=== PATIENT | male | born 1960 | race Caucasian/White ===

== ENCOUNTER 2020-07-21 11:13 | Inpatient (IN) ==
[2020-07-21 12:08] LABS: VBG HCO3 18 mEq/L (21-27); VBG PCO2 27 mmHg (41-51); VBG PH 7.43 pH Units (7.32-7.42); VBG PO2 66 mmHg (25-50)
[2020-07-21 12:08] LABS: Basophils # 0.1 K/mcL (0.0-0.2); Basophils % 1.1 %; Eosinophils # 0.3 K/mcL (0.0-0.6); Eosinophils % 6.1 %; Hematocrit 26.9 % (37.5-50.1); Hemoglobin 8.8 g/dL (12.9-16.9); Immature Granulocytes % 0.2 % (0-4); Lymphocytes # 0.9 K/mcL (0.6-4.6); Lymphocytes % 18.9 %; Mean Corpuscular HGB Conc 32.7 g/dL (31.6-35.5); Mean Corpuscular Hemoglobin 29.2 pg (28.0-33.3); Mean Corpuscular Volume 89.4 fL (83.0-100.0); Mean Platelet Volume 10.2 fL (9.4-12.4); Monocytes # 0.3 K/mcL (0.0-1.3); Monocytes % 7.2 %; Neutrophils # 3.2 K/mcL (1.6-8.9); Platelet Count 103 K/mcL (140-400); Red Blood Count 3.01 M/mcL (4.19-5.50); Red Cell Distribution Width 15.7 % (11.5-14.5); Segmented Neutrophils % 66.5 %; White Blood Count 4.8 K/mcL (4.3-11.1)
[2020-07-21 12:10] LABS: INR 1.5; Prothrombin Time 16.3 Seconds (9.4-12.1)
[2020-07-21 12:21] LABS: Alanine Aminotransferase 22 Units/L (7-52); Albumin 3.3 g/dL (3.5-5.7); Albumin/Globulin Ratio 0.6 (1.1-2.2); Alkaline Phosphatase 100 Units/L (34-104); Aspartate Amino Transferase 34 Units/L (13-39); BUN/Creatinine Ratio 22 (6-26); Bilirubin,Total 0.7 mg/dL (0.3-1.0); Blood Urea Nitrogen 29 mg/dL (8-23); Calcium 9.2 mg/dL (8.6-10.3); Carbon Dioxide 21 mEq/L (23-29); Chloride 103 mEq/L (98-107); Globulin 5.4 g/dL (2.4-3.5); Glucose 258 mg/dL (70-105); Osmolality,Calculated 293 (280-300); Sodium 134 mEq/L (136-145); Total Protein 8.7 g/dL (6.4-8.9); eGFR For African Americans > 60 (> 60); eGFR For Non-African Americans 55 (> 60)
[2020-07-21 12:45] LABS: Bilirubin,Urine Negative (Negative); Blood,Urine Negative (Negative); Clarity,Urine Clear (Clear); Color,Urine Yellow (Yellow); Glucose,Urine (UA) Normal (Normal); Ketones,Urine Negative (Negative); Leukocyte Esterase,Urine Negative (Negative); Nitrite,Urine Negative (Negative); Protein,Urine Negative (Neg-Trace); Urobilinogen,Urine Normal (Normal)
[2020-07-21] MEDS ORDERED: Lactulose Oral Soln 20 GM/30 ML UDC PO ONE (13:02)
[2020-07-21] MEDS ORDERED: Ondansetron 4 MG/2 ML VIAL IVP PRN (14:04)
[2020-07-21] MEDS ORDERED: Naloxone 0.4 MG/ML INJ IVP PRN (14:04)
[2020-07-21] MEDS ORDERED: Pregabalin 75 MG CAPSULE PO ONE (14:05)
[2020-07-21] MEDS ORDERED: *HR* OxyCODONE Immed Rel 5 MG TABLET PO STA (14:05)
[2020-07-21] MEDS: Lactulose Oral Soln 20 GM/30 ML UDC PO SCH ×2 (16:54→22:30)
[2020-07-21] MEDS: Furosemide 20 MG TABLET PO SCH (16:56)
[2020-07-21] MEDS ORDERED: D5% in Water 1,000 ML IVC PRN ×2 (17:29→23:32)
[2020-07-21] MEDS ORDERED: Dextrose Gel 15 GM/37.5 ML TUBE PO PRN ×4 (17:29→23:32)
[2020-07-21] MEDS ORDERED: *HR* Dextrose 50 % in Water (Vial) 50 ML VIAL IVP PRN ×2 (17:29→23:32)
[2020-07-21] MEDS: Pregabalin 75 MG CAPSULE PO SCH (22:25)
[2020-07-21] MEDS: Morphine Sulfate ER (12 HR) 30 MG TABLET.ER PO SCH (22:27)
[2020-07-21] MEDS: *HR* OxyCODONE Immed Rel 5 MG TABLET PO PRN (23:08)
[2020-07-22 05:25] LABS: Basophils # 0.1 K/mcL (0.0-0.2); Eosinophils # 0.3 K/mcL (0.0-0.6); Eosinophils % 4.9 %; Hematocrit 27.7 % (37.5-50.1); Hemoglobin 9.1 g/dL (12.9-16.9); Immature Granulocytes % 0.2 % (0-4); Lymphocytes # 0.7 K/mcL (0.6-4.6); Mean Corpuscular HGB Conc 32.9 g/dL (31.6-35.5); Mean Corpuscular Hemoglobin 29.5 pg (28.0-33.3); Mean Corpuscular Volume 89.9 fL (83.0-100.0); Mean Platelet Volume 9.4 fL (9.4-12.4); Monocytes # 0.4 K/mcL (0.0-1.3); Monocytes % 7.9 %; Neutrophils # 3.6 K/mcL (1.6-8.9); Platelet Count 105 K/mcL (140-400); Red Blood Count 3.08 M/mcL (4.19-5.50); Red Cell Distribution Width 15.4 % (11.5-14.5); White Blood Count 5.1 K/mcL (4.3-11.1)
[2020-07-22 05:39] LABS: BUN/Creatinine Ratio 20 (6-26); Blood Urea Nitrogen 25 mg/dL (8-23); Calcium 9.3 mg/dL (8.6-10.3); Carbon Dioxide 22 mEq/L (23-29); Chloride 101 mEq/L (98-107); Glucose 201 mg/dL (70-105); Osmolality,Calculated 284 (280-300); Sodium 132 mEq/L (136-145); eGFR For African Americans > 60 (> 60); eGFR For Non-African Americans 59 (> 60)
[2020-07-22] MEDS: *HR* OxyCODONE Immed Rel 5 MG TABLET PO PRN ×2 (06:15→17:18)
[2020-07-22] MEDS: *HR* Enoxaparin 40 MG/0.4 ML SYRINGE SQ SCH (06:15)
[2020-07-22] MEDS: Insulin LISPRO 300 UNITS/3 ML VIAL SUBQ SCH ×3 (08:28→17:19)
[2020-07-22] MEDS: Lactulose Oral Soln 20 GM/30 ML UDC PO SCH ×3 (08:29→21:25)
[2020-07-22] MEDS: Furosemide 20 MG TABLET PO SCH ×2 (08:30→15:57)
[2020-07-22] MEDS: Aspirin Enteric Coated 81 MG Tablet PO SCH (08:30)
[2020-07-22] MEDS: Pregabalin 75 MG CAPSULE PO SCH ×2 (08:30→21:22)
[2020-07-22] MEDS: Morphine Sulfate ER (12 HR) 30 MG TABLET.ER PO SCH (21:23)
[2020-07-22] MEDS ORDERED: Insulin LISPRO 300 UNITS/3 ML VIAL SUBQ SCH (21:40)
[2020-07-22] MEDS ORDERED: Insulin DETEMIR 100 UNIT/ML per UNIT SUBQ ONE ×2 (22:15)
[2020-07-23] MEDS: *HR* OxyCODONE Immed Rel 5 MG TABLET PO PRN (00:59)
[2020-07-23] MEDS: *HR* Enoxaparin 40 MG/0.4 ML SYRINGE SQ SCH (05:01)
[2020-07-23 06:24] LABS: Basophils # 0.1 K/mcL (0.0-0.2); Basophils % 1.2 %; Eosinophils # 0.3 K/mcL (0.0-0.6); Eosinophils % 5.7 %; Hematocrit 28.3 % (37.5-50.1); Hemoglobin 9.1 g/dL (12.9-16.9); Immature Granulocytes % 0.2 % (0-4); Lymphocytes % 20.4 %; Mean Corpuscular HGB Conc 32.2 g/dL (31.6-35.5); Mean Corpuscular Hemoglobin 28.9 pg (28.0-33.3); Mean Corpuscular Volume 89.8 fL (83.0-100.0); Mean Platelet Volume 9.6 fL (9.4-12.4); Monocytes # 0.4 K/mcL (0.0-1.3); Monocytes % 7.8 %; Neutrophils # 3.3 K/mcL (1.6-8.9); Platelet Count 108 K/mcL (140-400); Red Blood Count 3.15 M/mcL (4.19-5.50); Red Cell Distribution Width 15.6 % (11.5-14.5); Segmented Neutrophils % 64.7 %; White Blood Count 5.1 K/mcL (4.3-11.1)
[2020-07-23 06:30] LABS: BUN/Creatinine Ratio 18 (6-26); Blood Urea Nitrogen 22 mg/dL (8-23); Calcium 9.3 mg/dL (8.6-10.3); Carbon Dioxide 25 mEq/L (23-29); Chloride 99 mEq/L (98-107); Glucose 212 mg/dL (70-105); Osmolality,Calculated 284 (280-300); Potassium 3.6 mEq/L (3.5-5.1); Sodium 132 mEq/L (136-145); eGFR For African Americans > 60 (> 60); eGFR For Non-African Americans 59 (> 60)
[2020-07-23] MEDS: Aspirin Enteric Coated 81 MG Tablet PO SCH (08:11)
[2020-07-23] MEDS: Furosemide 20 MG TABLET PO SCH (08:12)
[2020-07-23] MEDS: Pregabalin 75 MG CAPSULE PO SCH (08:12)
[2020-07-23] MEDS: Insulin LISPRO 300 UNITS/3 ML VIAL SUBQ SCH ×2 (08:15→12:05)
[2020-07-23] MEDS: Lactulose Oral Soln 20 GM/30 ML UDC PO SCH (08:15)
[2020-07-23] MEDS ORDERED: Insulin DETEMIR 100 UNIT/ML X5UNITS SUBQ SCH (09:00)
[2020-07-23 10:51] VITALS: BP 136/62
== END 2020-07-23 15:45 | disposition home health service (06) | DRG 442 ==
LOC: EMEROOGRE 11:13 → INPGRE 11:13
PROVIDERS: ADMIT Family Medicine; ATTEND Family Medicine

== ENCOUNTER 2020-10-23 11:20 | Observation (INO) ==
[2020-10-23] MEDS ORDERED: Lactulose 200 GM, Sodium Chloride IRRigation 700 ML RC ONE ×2 (11:56→18:03)
[2020-10-23 11:59] LABS: Basophils # 0.1 K/mcL (0.0-0.2); Basophils % 1.5 %; Eosinophils # 0.2 K/mcL (0.0-0.6); Eosinophils % 6.8 %; Hematocrit 27.1 % (37.5-50.1); Immature Granulocytes % 0.3 % (0-4); Mean Corpuscular HGB Conc 33.2 g/dL (31.6-35.5); Mean Corpuscular Hemoglobin 29.7 pg (28.0-33.3); Mean Corpuscular Volume 89.4 fL (83.0-100.0); Mean Platelet Volume 10.4 fL (9.4-12.4); Monocytes # 0.3 K/mcL (0.0-1.3); Monocytes % 8.6 %; Red Blood Count 3.03 M/mcL (4.19-5.50); Red Cell Distribution Width 15.1 % (11.5-14.5); Segmented Neutrophils % 57.8 %; White Blood Count 3.4 K/mcL (4.3-11.1)
[2020-10-23 12:04] LABS: Lymphocytes # 0.9 K/mcL (0.6-4.6); Platelet Count 79 K/mcL (140-400)
[2020-10-23 12:06] LABS: INR 1.3; Platelet Estimate Decreased (Normal); Prothrombin Time 14.4 Seconds (9.4-12.1)
[2020-10-23 12:08] LABS: Activated Partial Thrombo Time 30.9 Seconds (26.0-36.0)
[2020-10-23 12:10] LABS: Acetaminophen < 10 mcg/mL (10-20); Ethanol < 10 mg/dL (Less than 10); Salicylate < 2.5 mg/dL (15.0-30.0)
[2020-10-23] MEDS ORDERED: Lactulose Oral Soln 20 GM/30 ML UDC PO ONE (12:29)
[2020-10-23 13:13] LABS: Albumin 3.4 g/dL (3.5-5.7); Albumin/Globulin Ratio 0.7 (1.1-2.2); Bilirubin,Total 0.8 mg/dL (0.3-1.0); Calcium 9.1 mg/dL (8.6-10.3); Globulin 4.7 g/dL (2.4-3.5); Magnesium 1.9 mg/dL (1.6-2.6); Potassium 4.2 mEq/L (3.5-5.1); Thyroid Stimulating Hormone 1.809 mcIU/mL (0.340-5.600); Total Protein 8.1 g/dL (6.4-8.9)
[2020-10-23 14:14] LABS: Bilirubin,Urine Negative (Negative); Blood,Urine Negative (Negative); Clarity,Urine Clear (Clear); Color,Urine Yellow (Yellow); Glucose,Urine (UA) Normal (Normal); Ketones,Urine Negative (Negative); Leukocyte Esterase,Urine Negative (Negative); Nitrite,Urine Negative (Negative); Protein,Urine Negative (Neg-Trace); Urobilinogen,Urine Normal (Normal)
[2020-10-23 14:32] LABS: Amphetamine Screen,Urine Negative ng/mL (Cutoff=1000); Barbiturate Screen,Urine Negative ng/mL (Cutoff=200); Benzodiazepines Screen,Urine Negative ng/mL (Cutoff=200); Cannabinoid Screen,Urine Positive ng/mL (Cutoff = 50); Cocaine Screen,Urine Negative ng/mL (Cutoff= 300); Opiate Screen,Urine Positive ng/mL (Cutoff=300); Phencyclidine Screen,Urine Negative ng/mL (Cutoff=25)
[2020-10-23] MEDS ORDERED: Naloxone 0.4 MG/ML INJ IVP PRN (18:03)
[2020-10-23] MEDS ORDERED: Ondansetron ODT 4 MG TAB.RAPDIS SL PRN (18:03)
[2020-10-23] MEDS ORDERED: Mag Hydrox/Al Hydrox/Simeth 30 ML UDC PO PRN (18:03)
[2020-10-23] MEDS ORDERED: MOM Conc 10 ML UD.LIQ PO PRN (18:03)
[2020-10-23] MEDS ORDERED: Dextrose Gel 15 GM/37.5 ML TUBE PO PRN ×2 (18:33)
[2020-10-23] MEDS ORDERED: *HR* Dextrose 50 % in Water (Vial) 50 ML VIAL IVP PRN (18:33)
[2020-10-23] MEDS ORDERED: D5% in Water 1,000 ML IVC PRN (18:33)
[2020-10-23] MEDS: Lactulose Oral Soln 20 GM/30 ML UDC PO SCH (22:26)
[2020-10-23] MEDS: Pregabalin 75 MG CAPSULE PO SCH (22:26)
[2020-10-23] MEDS: 0.9 % Sodium Chloride 1,000 ML IVC SCH (22:27)
[2020-10-24 05:04] LABS: Basophils % 1.4 %; Eosinophils # 0.1 K/mcL (0.0-0.6); Eosinophils % 4.4 %; Hematocrit 25.7 % (37.5-50.1); Hemoglobin 8.5 g/dL (12.9-16.9); Lymphocytes % 25.5 %; Mean Corpuscular HGB Conc 33.1 g/dL (31.6-35.5); Mean Corpuscular Hemoglobin 29.5 pg (28.0-33.3); Mean Corpuscular Volume 89.2 fL (83.0-100.0); Mean Platelet Volume 10.6 fL (9.4-12.4); Monocytes # 0.2 K/mcL (0.0-1.3); Monocytes % 8.2 %; Neutrophils # 1.8 K/mcL (1.6-8.9); Red Blood Count 2.88 M/mcL (4.19-5.50); Red Cell Distribution Width 14.9 % (11.5-14.5); Segmented Neutrophils % 60.5 %; White Blood Count 2.9 K/mcL (4.3-11.1)
[2020-10-24 05:05] LABS: Lymphocytes # 0.7 K/mcL (0.6-4.6); Platelet Count 74 K/mcL (140-400)
[2020-10-24] MEDS: *HR* Heparin 5,000 UNIT/ML VIAL SQ SCH ×2 (05:13→17:54)
[2020-10-24 05:23] LABS: Alanine Aminotransferase 25 Units/L (7-52); Albumin 3.2 g/dL (3.5-5.7); Albumin/Globulin Ratio 0.7 (1.1-2.2); Alkaline Phosphatase 133 Units/L (34-104); Aspartate Amino Transferase 34 Units/L (13-39); BUN/Creatinine Ratio 16 (6-26); Bilirubin,Total 0.8 mg/dL (0.3-1.0); Blood Urea Nitrogen 23 mg/dL (8-23); Calcium 9.2 mg/dL (8.6-10.3); Carbon Dioxide 20 mEq/L (23-29); Chloride 111 mEq/L (98-107); Globulin 4.4 g/dL (2.4-3.5); Glucose 129 mg/dL (70-105); Osmolality,Calculated 295 (280-300); Potassium 4.1 mEq/L (3.5-5.1); Sodium 140 mEq/L (136-145); Total Protein 7.6 g/dL (6.4-8.9); eGFR For African Americans > 60 (> 60); eGFR For Non-African Americans 50 (> 60)
[2020-10-24] MEDS: Insulin LISPRO 300 UNITS/3 ML VIAL SUBQ SCH ×3 (10:08→17:56)
[2020-10-24] MEDS: Pregabalin 75 MG CAPSULE PO SCH ×2 (10:29→22:07)
[2020-10-24] MEDS: Multivit/Ca/Min/Fe/FA 1 TAB TABLET PO SCH (10:29)
[2020-10-24] MEDS: *HR* SitaGLIPtin 25 MG TABLET PO SCH (10:29)
[2020-10-24] MEDS: carvediloL 6.25 MG TABLET PO SCH ×2 (10:30→17:54)
[2020-10-24] MEDS: Aspirin Enteric Coated 81 MG Tablet PO SCH (10:30)
[2020-10-24] MEDS: Folic Acid 1 MG TABLET PO SCH (10:30)
[2020-10-24] MEDS: Lactulose Oral Soln 20 GM/30 ML UDC PO SCH ×3 (10:30→22:07)
[2020-10-24] MEDS: 0.9 % Sodium Chloride 1,000 ML IVC SCH (10:37)
[2020-10-24] MEDS: Morphine Sulfate ER (12 HR) 15 MG TABLET.ER PO SCH ×2 (11:47→22:08)
[2020-10-24 16:16] LABS: Calcium 9.1 mg/dL (8.6-10.3); Potassium 3.9 mEq/L (3.5-5.1)
[2020-10-24] MEDS ORDERED: 0.9 % Sodium Chloride 1,000 ML IVC SCH (16:45)
[2020-10-24] MEDS ORDERED: Morphine Sulfate ER (12 HR) 15 MG TABLET.ER PO SCH (18:00)
[2020-10-25] MEDS: *HR* Heparin 5,000 UNIT/ML VIAL SQ SCH (06:05)
[2020-10-25 07:00] LABS: Basophils % 0.9 %; Eosinophils # 0.1 K/mcL (0.0-0.6); Eosinophils % 5.2 %; Hematocrit 23.3 % (37.5-50.1); Hemoglobin 7.7 g/dL (12.9-16.9); Lymphocytes # 0.8 K/mcL (0.6-4.6); Lymphocytes % 36.8 %; Mean Corpuscular Volume 90.7 fL (83.0-100.0); Mean Platelet Volume 10.4 fL (9.4-12.4); Monocytes # 0.2 K/mcL (0.0-1.3); Monocytes % 10.4 %; Red Blood Count 2.57 M/mcL (4.19-5.50); Red Cell Distribution Width 15.2 % (11.5-14.5); Segmented Neutrophils % 46.7 %; White Blood Count 2.1 K/mcL (4.3-11.1)
[2020-10-25 07:03] LABS: Platelet Count 63 K/mcL (140-400)
[2020-10-25 07:10] LABS: Alanine Aminotransferase 21 Units/L (7-52); Albumin 2.8 g/dL (3.5-5.7); Albumin/Globulin Ratio 0.7 (1.1-2.2); Alkaline Phosphatase 113 Units/L (34-104); Aspartate Amino Transferase 29 Units/L (13-39); BUN/Creatinine Ratio 16 (6-26); Bilirubin,Total 0.6 mg/dL (0.3-1.0); Blood Urea Nitrogen 22 mg/dL (8-23); Calcium 8.4 mg/dL (8.6-10.3); Carbon Dioxide 19 mEq/L (23-29); Chloride 108 mEq/L (98-107); Globulin 3.9 g/dL (2.4-3.5); Glucose 188 mg/dL (70-105); Osmolality,Calculated 286 (280-300); Potassium 3.9 mEq/L (3.5-5.1); Sodium 134 mEq/L (136-145); Total Protein 6.7 g/dL (6.4-8.9); eGFR For African Americans > 60 (> 60); eGFR For Non-African Americans 52 (> 60)
[2020-10-25 07:24] LABS: Platelet Estimate Marked Decrease (Normal)
[2020-10-25] MEDS: Insulin LISPRO 300 UNITS/3 ML VIAL SUBQ SCH ×2 (08:53→12:36)
[2020-10-25] MEDS: *HR* SitaGLIPtin 25 MG TABLET PO SCH (08:54)
[2020-10-25] MEDS: Folic Acid 1 MG TABLET PO SCH (08:54)
[2020-10-25] MEDS: carvediloL 6.25 MG TABLET PO SCH (08:54)
[2020-10-25] MEDS: Morphine Sulfate ER (12 HR) 15 MG TABLET.ER PO SCH (08:54)
[2020-10-25] MEDS: Multivit/Ca/Min/Fe/FA 1 TAB TABLET PO SCH (08:54)
[2020-10-25] MEDS: Aspirin Enteric Coated 81 MG Tablet PO SCH (08:54)
[2020-10-25] MEDS: Pregabalin 75 MG CAPSULE PO SCH (08:54)
[2020-10-25] MEDS: Lactulose Oral Soln 20 GM/30 ML UDC PO SCH ×2 (08:55→14:28)
[2020-10-25 12:02] VITALS: BP 113/69
[2020-10-25 18:49] LABS: Estimated Average Glucose 209 mg/dl; Hemoglobin A1C 8.9 %
== END 2020-10-25 15:07 | disposition home or self-care (01) ==
LOC: SUPCPDRO → INPGRE 11:20 → EMEROOGRE 11:20 → INPGRE 18:00
PROVIDERS: ADMIT Family Medicine; ATTEND Family Medicine